=== PATIENT | female | born 1960 | race Caucasian/White ===

== ENCOUNTER 2018-01-02 10:54 | Day surgery (SDC) | payer OTHER ==
[~2018-01-02] VITALS: Ht 154.9 cm; Wt 67.6 kg
[2018-01-02] MEDS ORDERED: fentaNYL 0.05 MG/ML VIAL ONE (12:42)
[2018-01-02] MEDS ORDERED: MIDAZOLAM 2 MG/2 ML VIAL ONE ×2 (12:42)
[2018-01-02] MEDS ORDERED: MIDAZOLAM 2 MG/2 ML VIAL IVP ONE (13:05)
== END 2018-01-02 14:13 | disposition home or self-care (01) ==
LOC: MDS 10:54 → MMU 10:55 → MDS 14:13
PROVIDERS: ATTEND Internal Medicine Gastroenterology
DX: K25.9 Gastric ulcer, unspecified as acute or chronic, without hemorrhage or perforation (principal); K44.9 Diaphragmatic hernia without obstruction or gangrene; K29.80 Duodenitis without bleeding; I51.89 Other ill-defined heart diseases; B96.81 Helicobacter pylori [H. pylori] as the cause of diseases classified elsewhere; E11.9 Type 2 diabetes mellitus without complications; K76.0 Fatty (change of) liver, not elsewhere classified; E66.3 Overweight; Z98.890 Other specified postprocedural states; Z90.710 Acquired absence of both cervix and uterus; Z79.899 Other long term (current) drug therapy; Z79.84 Long term (current) use of oral hypoglycemic drugs; Z68.28 Body mass index [BMI] 28.0-28.9, adult
CPT/HCPCS: 36415; 43239; 82948; 86677; J2250; J3010